=== PATIENT | female | born 1990 | race Two or more races ===

== ENCOUNTER 2022-09-21 20:52 | Emergency (ER) | payer MEDICAID, OTHER ==
[~2022-09-21] VITALS: Ht 165.1 cm; Wt 99.0 kg
[~2022-09-21 20:52] MED LIST: DESO1TAB15 PO; LORA-622 PO; MULT-1018 PO
[2022-09-21 21:12] VITALS: BP 124/84
[2022-09-21] MEDS ORDERED: RALT400T PO (21:22)
[2022-09-21] MEDS ORDERED: EMTRTAB7 PO (21:22)
[2022-09-21 21:52] LABS: Hepatitis B Surface Antibody Positive (Negative)
== END 2022-09-21 22:53 | disposition home or self-care (01) ==
LOC: ER 20:57
DX: S61.231A Puncture wound without foreign body of left index finger without damage to nail, initial encounter (principal); J45.909 Unspecified asthma, uncomplicated; E03.9 Hypothyroidism, unspecified; Z90.49 Acquired absence of other specified parts of digestive tract; Z90.89 Acquired absence of other organs; Z79.899 Other long term (current) drug therapy; W46.1XXA Contact with contaminated hypodermic needle, initial encounter; Y93.89 Activity, other specified; Y92.89 Other specified places as the place of occurrence of the external cause; Y99.0 Civilian activity done for income or pay
CPT/HCPCS: 36415; 86703; 86706; 86803; 87340

== ENCOUNTER → 2023-06-09 | Outpatient (CLI) | payer BC ==
[~2023-06-09] MED LIST changes: +EMTRTAB7 PO; +RALT400T PO
[2023-06-09 14:04] LABS: Urine Bacteria NONE SEEN /hpf (None Seen); Urine Blood Negative /uL (Negative); Urine Mucus FEW (None Seen); Urine Specific Gravity 1.023 (1.001-1.035); Urine WBC 1 /hpf (0 - 5)
[2023-06-09 14:08] LABS: Nucleated Red Blood Cells % 0.1 %
[2023-06-09 14:12] LABS: Basophils # (auto) 0.1 10 ^3/uL (0-0.2); Basophils % (auto) 0.7 % (0.0-2.0); Eosinophils # (auto) 0.3 10 ^3/uL (0-0.8); Eosinophils % (auto) 3.2 % (0.0-7.0); Hematocrit 45.1 % (36.0-46.0); Hemoglobin 14.9 g/dL (12.2-16.2); Lymphocytes # (auto) 2.6 10 ^3/uL (0.4-5.4); Lymphocytes % (auto) 32.3 % (10.0-50.0); Mean Corpuscular Hemoglobin 26.6 pg (28.0-32.0); Mean Corpuscular Hgb Conc. 33.1 g/dL (32.0-36.0); Mean Corpuscular Volume 80.5 fL (80.0-100.0); Monocytes # (auto) 0.4 10 ^3/uL (0-1.3); Monocytes % (auto) 4.6 % (0.0-12.0); Neutrophils # (auto) 4.8 10 ^3/uL (1.6-8.6); Neutrophils % (auto) 59.2 % (37.0-80.0); Red Blood Cells 5.61 10^6/uL (4.0-5.20); Red Cell Distribution Width 15.6 % (11.8-14.3); White Blood Cell 8.2 10^3/uL (4.4-10.8)
[2023-06-09 14:29] LABS: Potassium 3.6 mmol/L (3.5-5.1)
[2023-06-09 14:38] LABS: Albumin 3.6 g/dL (3.4-5.0); BUN/Creatinine Ratio 24.6 (10.0-20.0); Bilirubin, Total 0.4 mg/dL (0.2-1.0); Total Protein 7.6 g/dL (6.4-8.2)
[2023-06-09 15:07] LABS: Free T4 (Free Thyroxine) 1.17 ng/dL (0.89-1.76)
== END | disposition home or self-care (01) ==
LOC: LAB 13:19
DX: Z11.59 Encounter for screening for other viral diseases (principal); Z00.00 Encounter for general adult medical examination without abnormal findings; Z13.29 Encounter for screening for other suspected endocrine disorder; Z13.31 Encounter for screening for depression; Z13.228 Encounter for screening for other metabolic disorders; Z13.0 Encounter for screening for diseases of the blood and blood-forming organs and certain disorders involving the immune mechanism; Z13.21 Encounter for screening for nutritional disorder
CPT/HCPCS: 36415; 80053; 80061; 81001; 82306; 82607; 83036; 84439; 84443; 85025; 87086

== ENCOUNTER 2024-04-04 20:06 | Emergency (ER) | payer BC ==
[~2024-04-04] VITALS: Ht 165.1 cm; Wt 98.0 kg
[~2024-04-04 20:06] MED LIST changes: +SUMA100T2 PO; +ZOFR4T PO
[2024-04-04] MEDS: IPRATROPIUM BROM 0.5 MG/2.5ML INH SOL NEB ONE (20:31)
[2024-04-04] MEDS: ALBUTEROL SULF 2.5 MG/0.5ML(0.5%) NEB SOLN NEB ONE (20:32)
[2024-04-04] MEDS ORDERED: PRED20TA2 PO (21:19)
[2024-04-04 21:32] VITALS: BP 144/100; PULSE 88; RESP 20; TEMP 98; O2SAT 99
== END 2024-04-04 21:19 | disposition home or self-care (01) ==
LOC: EEVIPCON 20:06 → ER 20:06
DX: J45.901 Unspecified asthma with (acute) exacerbation (principal); E03.9 Hypothyroidism, unspecified; Z90.49 Acquired absence of other specified parts of digestive tract; Z90.89 Acquired absence of other organs
CPT/HCPCS: 94640; 99283; J7644

== ENCOUNTER 2024-08-18 15:28 | Emergency (ER) | payer BC ==
[~2024-08-18] VITALS: Ht 165.1 cm; Wt 94.4 kg
[~2024-08-18 15:28] MED LIST changes: +PRED20TA2 PO
[2024-08-18 16:24] VITALS: BP 143/97; PULSE 84; RESP 16; TEMP 98.9; O2SAT 96
[2024-08-18] MEDS ORDERED: AUG875T PO (17:17)
[2024-08-18] MEDS ORDERED: BENZ200C64 PO (17:17)
[2024-08-18] MEDS ORDERED: PRED20TA2 PO (17:17)
== END 2024-08-18 17:26 | disposition home or self-care (01) ==
LOC: ER 15:28
DX: J01.90 Acute sinusitis, unspecified (principal); J45.909 Unspecified asthma, uncomplicated; Z90.49 Acquired absence of other specified parts of digestive tract; Z90.89 Acquired absence of other organs; Z79.899 Other long term (current) drug therapy
CPT/HCPCS: 71045